=== PATIENT | female | born 2000 | race Two or more races ===

== ENCOUNTER → 2019-03-15 | Outpatient (CLI) | payer OTHER ==
[2019-03-15 13:23] LABS: ALANINE AMINOTRANSFERASE 31 U/L (9-52); ALBUMIN 4.6 g/dL (3.5-5.0); ALKALINE PHOSPHATASE 87 U/L (38-126); ANION GAP 8 (5-19); ASPARTATE AMINO TRANSFERASE 20 U/L (14-36); BILIRUBIN,DIRECT 0.2 mg/dL (0.0-0.4); BILIRUBIN,TOTAL 0.6 mg/dL (0.2-1.3); BLOOD UREA NITROGEN 11 mg/dL (7-20); CARBON DIOXIDE 26 mmol/L (22-30); CHLORIDE 106 mmol/L (98-107); GLUCOSE 87 mg/dL (75-110); POTASSIUM 5.3 mmol/L (3.6-5.0); TOTAL PROTEIN 7.7 g/dL (6.3-8.2)
== END ==
LOC: OD 12:09
PROVIDERS: ATTEND Family Medicine
DX: Z83.3 Family history of diabetes mellitus (principal)
CPT/HCPCS: 36415; 80053